=== PATIENT | female | born 1995 | race Caucasian/White ===

== ENCOUNTER 2018-04-04 17:45 | Observation (INO) | payer BC ==
[~2018-04-04] VITALS: Ht 157.5 cm; Wt 66.7 kg
== END 2018-04-04 20:20 | disposition home or self-care (01) ==
LOC: SPU 17:45
PROVIDERS: ADMIT Obstetrics & Gynecology; ATTEND Obstetrics & Gynecology
DX: O62.9 Abnormality of forces of labor, unspecified (principal); Z3A.37 37 weeks gestation of pregnancy
CPT/HCPCS: 81002; G0378

== ENCOUNTER 2018-04-15 00:15 | Inpatient (IN) | payer BC ==
[~2018-04-15] VITALS: Ht 157.5 cm; Wt 68.0 kg
[2018-04-15] MEDS ORDERED: LR 1,000 ML IV SCH (00:57)
[2018-04-15] MEDS ORDERED: OXYTOCIN/0.9 % SODIUM CHLORIDE 1,000 ML IV SCH ×2 (00:57→10:53)
[2018-04-15] MEDS ORDERED: DINOPROSTONE 10 MG SUPP VG ONE (01:00)
[2018-04-15] MEDS ORDERED: TERBUTALINE SULFATE 1 MG/ML VIAL SUBCUT ONE (01:00)
[2018-04-15] MEDS ORDERED: NALBUPHINE HCL 10 MG/ML AMP IVP PRN (01:00)
[2018-04-15] MEDS ORDERED: OXYTOCIN/0.9 % SODIUM CHLORIDE 1,000 ML IV ONE ×2 (01:57→10:53)
[2018-04-15 02:04] LABS: HEMATOCRIT 37.1 % (36-48); MEAN CORPUSCULAR HEMOGLOBIN 31 pg (27-31); MEAN CORPUSCULAR HGB CONC 35 % (32-36); MEAN CORPUSCULAR VOLUME 89 fL (79.0-98.0); PLATELET COUNT (AUTO) 273 K/uL (130-430); RED BLOOD CELL COUNT(AUTO) 4.15 MIL/uL (4.2-6.2); RED CELL DISTRIBUTION WIDTH 12.9 % (9.0-15.0); WHITE BLOOD COUNT (AUTO) 12.3 K/uL (4.8-10.8)
[2018-04-15] MEDS ORDERED: fentaNYL CITRATE/PF 100 MCG/2 ML AMP ONE (02:27)
[2018-04-15] MEDS ORDERED: ROPIVACAINE 0.2% 100 ML ONE ×2 (02:28→09:54)
[2018-04-15 02:40] LABS: BASOPHILS % (MANUAL) 0 % (0-2); EOSINOPHILS % (MANUAL) 0 % (0-7); LYMPHOCYTES % (MANUAL) 37 % (20-46); MONOCYTES % (MANUAL) 2 % (0-11)
[2018-04-15 04:42] VITALS: BP_SYST 103
[2018-04-15] MEDS ORDERED: LR 500 ML IV ONE (09:28)
[2018-04-15] MEDS ORDERED: FENT2mCg/mL-ROPIVA0.2%/NS EPID 150 ML EP SCH (09:30)
[2018-04-15] MEDS ORDERED: OXYCODONE/ACETAMINOPHEN 5-325 TABLET PO PRN ×2 (11:00)
[2018-04-15] MEDS ORDERED: SENNOSIDES/DOCUSATE SODIUM 1 TAB TABLET(SENOKOT-S) PO PRN (11:00)
[2018-04-15] MEDS ORDERED: ACETAMINOPHEN 325 MG TABLET PO PRN (11:00)
[2018-04-15] MEDS ORDERED: MEASLES,MUMPS&RUBELLA VACC/PF 12500 UNIT/0.5 ML VIAL SUBQ PRN (11:00)
[2018-04-15] MEDS ORDERED: HYDROCORTISONE 0.5%, 28.35 GM TOPICAL CREAM TP PRN (11:00)
[2018-04-15] MEDS ORDERED: ANUSOL 1 EA SUPP.RECT (PREPARATION H) RC PRN (11:00)
[2018-04-15] MEDS ORDERED: LANOLIN 7 GM OINT. TP PRN (11:00)
[2018-04-15] MEDS ORDERED: RHO(D) IMMUNE GLOBULIN/MALTOSE 1500 UNITS/1.3 ML (WINHRO) IM PRN (11:00)
[2018-04-15] MEDS ORDERED: METHYLERGONOVINE MALEATE 0.2 MG TABLET PO PRN (11:00)
[2018-04-15] MEDS ORDERED: WITCH HAZEL LEAF 1 MED.PAD MED.PAD TP PRN (11:00)
[2018-04-15] MEDS ORDERED: DERMOPLAST SPRAY TP PRN (11:00)
[2018-04-15] MEDS ORDERED: DIPH-TET-PERTUS Vaccine 0.5 ML VIAL (ADACEL) I.M. PRN (11:00)
[2018-04-15] MEDS: IBUPROFEN 600 MG TABLET PO SCH ×2 (12:16→17:52)
[2018-04-15] MEDS: DOCUSATE SODIUM 100 MG CAPSULE PO PRN (12:16)
[2018-04-15] MEDS ORDERED: TEMAZEPAM 15 MG CAPSULE PO PRN (21:00)
[2018-04-16] MEDS: IBUPROFEN 600 MG TABLET PO SCH ×3 (00:23→12:31)
[2018-04-16] MEDS ORDERED: MINERAL OIL 30 ML UDC PO ONE (07:03)
[2018-04-16 07:08] LABS: HEMATOCRIT 31.3 % (36-48); HEMOGLOBIN 10.8 g/dL (12.0-16.0)
[2018-04-16] MEDS: DOCUSATE SODIUM 100 MG CAPSULE PO PRN (12:31)
[2018-04-16] MEDS ORDERED: ROPIVACAINE 40 MG/20 ML AMP EP ONE (13:15)
== END 2018-04-16 13:34 | disposition home or self-care (01) | DRG 775 ==
LOC: SPU 00:15
PROVIDERS: ADMIT Obstetrics & Gynecology; ATTEND Obstetrics & Gynecology
PROC: 10E0XZZ Delivery of Products of Conception, External Approach (ICD-10-PCS; principal; 2018-04-15)
PROC: 0KQM0ZZ Repair Perineum Muscle, Open Approach (ICD-10-PCS; 2018-04-15)
PROC: 3E0R3BZ Introduction of Anesthetic Agent into Spinal Canal, Percutaneous Approach (ICD-10-PCS; 2018-04-15)
PROC: 00HU33Z Insertion of Infusion Device into Spinal Canal, Percutaneous Approach (ICD-10-PCS; 2018-04-15)
DX: O70.1 Second degree perineal laceration during delivery (principal); Z37.0 Single live birth; Z3A.39 39 weeks gestation of pregnancy
CPT/HCPCS: 36415; 81002-TC; 85007; 85018-TC; 85027; 86592; 86886; 86900; 86901; J2590; J2795; J3010; J7120